=== PATIENT | male | born 1980 | race Caucasian/White ===

== ENCOUNTER 2017-09-26 06:52 | Emergency (ER) | payer SELFPAY ==
[2017-09-26 07:15] LABS: BASOPHILS 0.4 % (0-2); EOSINOPHILS 9.6 % (0-7); HEMATOCRIT 40.3 % (42.0-54.0); HEMOGLOBIN 14.2 g/dL (13.5-17.5); IMMATURE GRANULOCYTES 0.5 % (0-5); LYMPHOCYTES 27.6 % (15-50); MCH 31.6 pg (26.0-34.0); MCHC 35.2 g/dL (31.0-37.0); MCV 89.6 fL (80.0-100.0); MONOCYTES 6.8 % (2-11); NEUTROPHILS 55.1 % (40-80); PLATELET COUNT 220 10x3/uL (130-400); RDW 12.8 % (11.5-14.5); WBC 8.5 10x3/uL (4.8-10.8)
== END 2017-09-26 09:14 | disposition home or self-care (01) ==
LOC: D.ER 06:52
PROVIDERS: Family Medicine
DX: S29.012A Strain of muscle and tendon of back wall of thorax, initial encounter (principal); V43.62XA Car passenger injured in collision with other type car in traffic accident, initial encounter; Y93.89 Activity, other specified; Y92.410 Unspecified street and highway as the place of occurrence of the external cause; S39.012A Strain of muscle, fascia and tendon of lower back, initial encounter; S22.089A Unspecified fracture of T11-T12 vertebra, initial encounter for closed fracture